=== PATIENT | male | born 1970 | race Caucasian/White ===

== ENCOUNTER 2016-09-06 08:44 | Day surgery (SDC) | payer BC ==
[2016-09-05 08:21] VITALS: BMI 34.9
[~2016-09-06 08:44] MED LIST: DEXAMETHASONE SOD PHOSPHATE 10 MG/ML 1 ML VIAL IV ONE; HEPARIN SODIUM,PORCINE 5,000 UNIT/ML 1 ML VIAL SQ ONE; ONDANSETRON 4 MG/2 ML VIAL IVP ONE; ceFAZolin 2 GM in SODIUM CHLORIDE 0.9% 100 ML IVPB ONE
[2016-09-06 09:22] VITALS: RESP 16
[2016-09-06] MEDS: LACTATED RINGERS 1,000 ML IV SCH (09:40)
[2016-09-06] MEDS ORDERED: LIDOCAINE 1% 20 ML VIAL (10MG/ML) FOR IV START INTRADERMA ONE (09:40)
--- NOTE | 2016-09-06 09:46 | P.GSHP ---
History of Present Illness H&P Date: 09/06/16 Chief Complaint: Incarcerated umbilical hernia This a 45-year-old male referred from Dr. Keaton Leal. Patient presents today for laparoscopic robotic system repair of incarcerated umbilical hernia. Patient is he felt pain in his umbilicus over the last month. - Constitutional Constitutional: Reports as per HPI Past Medical History Additional Past Medical History / Comment(s): IS BEING TESTED FOR SLEEP APNEA History of Any Multi-Drug Resistant Organisms: None Reported Additional Past Surgical History / Comment(s): REPAIR AT AGE 5, WISDOM TEETH Past Anesthesia/Blood Transfusion Reactions: No Reported Reaction Past Psychological History: No Psychological Hx Reported Smoking Status: Former smoker Past Alcohol Use History: Occasional Additional Past Alcohol Use History / Comment(s): QUIT SMOKING 2005, SMOKED 1PPD , STARTED AGE 23 (1993) Past Drug Use History: None Reported - Past Family History Father Family Medical History: Cancer Additional Family Medical History / Comment(s): SKIN Medications and Allergies Home Medications Medication Instructions Recorded Confirmed Type Cholecalciferol [Vitamin D3] 1,000 unit PO DAILY 09/05/16 09/06/16 History Allergies Allergy/AdvReac Type Severity Reaction Status Date / Time No Known Allergies Allergy Verified 09/05/16 08:16 Surgical - Exam Vital Signs Temp Pulse Resp BP Pulse Ox 97.5 F L 71 16 149/91 95 09/06/16 09:21 09/06/16 09:21 09/06/16 09:21 09/06/16 09:21 09/06/16 09:21 - General well developed, no distress - Eyes PERRL - ENT normal pinna - Neck no masses - Respiratory normal expansion - Cardiovascular Rhythm: regular - Abdomen Abdomen: soft, non tender Assessment and Plan Plan: Incarcerated umbilical hernia. We'll perform laparoscopic robotic-assisted repair.
[2016-09-06] MEDS ORDERED: MIDAZOLAM 2 MG/2 ML VIAL ONE (09:59)
[2016-09-06] MEDS ORDERED: ONDANSETRON 4 MG/2 ML VIAL ONE (09:59)
[2016-09-06] MEDS ORDERED: SUCCINYLCHOLINE CHLORIDE VIAL 200 MG/10 ML VIAL IV ONE (09:59)
[2016-09-06] MEDS ORDERED: LIDOCAINE 1% INJ 10MG/ML (20 ML MDV) ONE (09:59)
[2016-09-06] MEDS ORDERED: KETOROLAC 30 MG/ML 1 ML VIAL ONE (09:59)
[2016-09-06] MEDS ORDERED: fentaNYL (PF) 50 MCG/ML 2 ML AMP ONE (09:59)
[2016-09-06] MEDS ORDERED: PROPOFOL 10 MG/ML 20 ML VIAL IV ONE (09:59)
[2016-09-06] MEDS ORDERED: GLYCOPYRROLATE 0.2 MG/ML 2 ML VIAL ONE (09:59)
[2016-09-06] MEDS ORDERED: NEOSTIGMINE 1 MG/ML 10 ML VIAL ONE (09:59)
[2016-09-06] MEDS ORDERED: ROCURONIUM BROMIDE 10 MG/ML 10 ML VIAL IV ONE (09:59)
[2016-09-06] MEDS ORDERED: BUPIVACAIN-EPI 0.25%-1:200,000 30 ML VIAL SQ ONE (10:29)
--- NOTE | 2016-09-06 11:23 | P.OP ---
Date of Procedure: 09/06/16 Preoperative Diagnosis: Incarcerated umbilical hernia Postoperative Diagnosis: Incarcerated umbilical hernia Procedure(s) Performed: Laparoscopic robotic-assisted repair of incarcerated umbilical hernia Anesthesia: MARIAH Surgeon: Ethan Smith Estimated Blood Loss (ml): 5 Pathology: none sent Condition: stable Disposition: PACU Description of Procedure: The patient's placed on the operating table in the supine position. He received general anesthesia. His abdomen was prepped and draped in the usual sterile fashion. The skin incision sites were anesthetized 1% local Xylocaine. Using an 11 blade the skin was incised in the right upper quadrant. Then using a 5 mm blade less trocar under direct visualization peritoneal cavity is entered. Upon entering the peritoneal cavity the abdomen was insufflated. And then after adequate insufflation the laparoscope was placed back the peritoneal cavity. Next a 8 mm robotic trocar was placed in the left lower quadrant. A 12 mm trocar was placed the left lateral position. And then the initial 5 mm trocar was replaced with an 8 mm robotic trocar. The patient's placed in the left side up position. And then the patient was docked to the robot. The fascial defect was visualized. There was a small piece of omentum in the hernia and this was reduced. The fascial defect was then closed using oh the lock suture and then a ventral light ST mesh was placed over top of the hernia repair and secured with 2 OV lock suture. The patient was undocked from the robot. The needles were then withdrawn. The fascia the fascia of the 12 mm trocar site was closed with the Terrence Harris suture passer using 0 Ethibond suture. Skin was closed with interrupted 3-0 Monocryl suture. Dermabond dressings was applied. Patient top she will was sent to recovery room in stable condition.
[2016-09-06] MEDS: HYDROmorphone 1 MG/ML 1 ML SYRINGE IVP PRN ×2 (11:33→11:38)
[2016-09-06 11:36] VITALS: TEMP 97
[2016-09-06] MEDS ORDERED: HYDROcodone/APAP 7.5-325MG 1 EACH TAB PO ONE (12:24)
[2016-09-06 12:34] VITALS: BP 163/91; PULSE 76
== END 2016-09-06 13:08 | disposition home or self-care (01) ==
LOC: OR 08:44
PROVIDERS: ATTEND Surgery
DX: K42.0 Umbilical hernia with obstruction, without gangrene (principal); Z87.891 Personal history of nicotine dependence
CPT/HCPCS: 49653; S2900

== ENCOUNTER → 2016-09-21 | Outpatient (CLI) | payer BC ==
--- NOTE | 2016-09-21 12:07 | CONS ---
DATE OF CONSULTATION: 09/21/2016 CONSULTATION/NEW PATIENT EVALUATION A 45-year-old gentleman who has been evaluated in the sleep center for snoring, witnessed episodes of stopped breathing and kicking during the sleep. HISTORY OF PRESENT ILLNESS/SLEEP-WAKE EVALUATION: SLEEP SCHEDULE: Patient's usual sleep schedule is from 10 p.m. to 5 a.m. on working days and from midnight until 7:00 a.m. on the weekends. FALLING ASLEEP: No problem with falling asleep. He has TV set in bedroom. DURING SLEEP: Sleeps in different positions including back, side and stomach. According to his , he snores, has episodes of stopped breathing during the sleep, sleeptalking, awakenings with gasping for air, up to 2 times at night and once with nocturia. DURING THE DAY/WAKE STATE: In the morning, patient wakes up tired, falling asleep during the day. Katy Sleepiness Scale significantly increased to 15. Positive history of irritability, Patient does not remember usually his dreams. No history of any abnormal out of dream movements, but patient reported significant amount of kicking at night and sleep talking. PAST MEDICAL HISTORY: Recent surgery for umbilical hernia and seasonal allergy. PAST SURGICAL HISTORY: Umbilical hernia repair 09/06/16. SOCIAL HISTORY: Negative for smoking. Alcohol consumption occasional. MEDICATIONS: None. Allergies to MOLD and POLLEN. REVIEW OF SYSTEMS: Awakenings from sleep, sleepiness during the day. No fevers. No double vision. No recent chest pain. No shortness of breath. No abdominal pain. No bleeding episodes. No blood in urine. No seizure episodes. FAMILY HISTORY: Hypertension, arthritis, sinus headaches, sleep apnea, snoring, pneumonia, diabetes. PHYSICAL EXAMINATION: GENERAL: A 45-year-old gentleman without distress. VITAL SIGNS: BP 155/80, HR 74, RR 16. Height 5 feet 7 inches. Weight 224. BMI 35. Neck 17-1/2 inches in circumference. Temperature 96.7. Oxygen saturation at room air 97%. HEENT: PERRLA, EOMI. Evaluation of oropharynx extremely low position of soft palate. Tonsils hypertrophic. Restriction of nasal breathing on the left side. NECK: Supple. No JVD. Thyroid is not palpable. LUNGS: Clear to percussion and to auscultation. Good air exchange. No wheezing or rhonchi. HEART: S1, S2 regular. No murmurs, gallops or rubs. ABDOMEN: Obese. EXTREMITIES: No clubbing or cyanosis. SHEET SORTER: Awake, alert, and oriented x3. Cranial nerves 2 to 7 intact. There is no fasciculation or atrophy noted. No focal deficits observed. IMPRESSION: 1. Snoring and witnessed episodes of stopped breathing during sleep, extremely small oropharyngeal air space, obstructive sleep apnea-hypopnea syndrome. 2. Positive history of kicking at night; possible PLMS. 3. Sleepiness. Katy Sleepiness Scale increased to 15, most probably related to obstructive sleep apnea. 4. Hypertension in the office today. 5. Obesity, body mass index 35. 6. History of sleeptalking. 7. Restriction of nasal breathing on the left side. 8. Status post umbilical hernia repair on 09/06/16. 9. Seasonal allergies. PLAN: 1. Polysomnography for evaluation of patient's breathing during sleep. 2. CPAP/BiPAP titration if sleep study confirms obstructive sleep apnea-hypopnea syndrome. 3. Preferable position during sleep on the side. 4. No driving if patient feels any sleepiness. Patient is aware of civil and criminal liability for unsafe driving. 5. I will see patient for follow-up visit to explain results of the testing and following plan. Thank you very much for referring this patient for consultation. Sincerely, Omar Gordon MD, PhD, FAASM. Diplomat of [employer], Sleep Medicine Board by [employer] [facility] [place]
== END | disposition home or self-care (01) ==
LOC: SLEEP 10:15
PROVIDERS: ATTEND Internal Medicine
DX: G47.33 Obstructive sleep apnea (adult) (pediatric) (principal); I10 Essential (primary) hypertension; J30.2 Other seasonal allergic rhinitis; E66.9 Obesity, unspecified; Z68.35 Body mass index [BMI] 35.0-35.9, adult; Z98.890 Other specified postprocedural states
CPT/HCPCS: 99211

== ENCOUNTER → 2020-02-02 | Outpatient (CLI) | payer BC | END | disposition home or self-care (01) | LOC: LABWHC1 14:35 | PROVIDERS: ATTEND Family Medicine | DX: R51 Headache (principal); R05 Cough; R19.7 Diarrhea, unspecified; R09.89 Other specified symptoms and signs involving the circulatory and respiratory systems; Z11.59 Encounter for screening for other viral diseases | CPT/HCPCS: U0003; C9803 ==

== ENCOUNTER → 2024-07-04 | Outpatient (CLI) | payer BC ==
--- NOTE | 2024-07-04 12:53 | US ---
EXAMINATION TYPE: US abdomen limited DATE OF EXAM: 07/04/2024 COMPARISON: NONE CLINICAL INDICATION: Male, 53 years old with history of K76.0 FATTY LIVER; elevated labs TECHNIQUE: Grayscale and color Doppler imaging of the right upper quadrant was performed. FINDINGS: EXAM MEASUREMENTS: Liver Length: 15.0 cm Gallbladder Wall: 0.2 cm CBD: 0.4 cm Right Kidney: 10.5 x 5.5 x 5.7 cm Pancreas: wnl Liver: difficult to penetrate , no masses, dilated ducts or cysts. Gallbladder: wnl Evidence for sonographic Villalpando's sign: no CBD: wnl Right Kidney: wnl IMPRESSION: 1. Hepatic steatosis. 2. No evidence for acute process. [facility], , 07/04/2024 12:51 PM
== END | disposition home or self-care (01) ==
LOC: RADUSWWP 07:06
PROVIDERS: ATTEND Family Medicine
DX: K76.0 Fatty (change of) liver, not elsewhere classified (principal)
CPT/HCPCS: 76705